=== PATIENT | male | born 1965 | race Caucasian/White ===

== ENCOUNTER 2016-09-04 23:04 | Inpatient (IN) ==
[2016-09-05] MEDS ORDERED: NS 2,000 ML IV ONE (00:13)
[2016-09-05 00:33] LABS: BASO% 0.5 % (0.0-0.8); EOS# 0.08 X1000 (0.0-0.7); EOS% 0.5 % (0.0-10.0); HEMATOCRIT 17.5 % (42.0-52.0); IMM GRAN# 0.07 X1000 (0.0-0.04); IMM GRAN% 0.4 % (0.0-0.5); LYMPH# 4.21 X1000 (1.2-3.4); LYMPH% 24.7 % (20.5-51.1); MCH 26.1 PG (27-31); MCHC 30.9 g/dL (33-37); MCV 84.5 FL (81-99); MONO# 2.83 X1000 (0.11-0.59); MONO% 16.6 % (1.7-9.3); NEUT% 57.3 % (42.2-75.2); PLT 468 X1000 (130-400); RBC 2.07 XMIL (4.7-6.1)
[2016-09-05 00:34] LABS: INR 0.96
[2016-09-05 00:38] LABS: PTT 18.5 Seconds (22.0-36.0)
[2016-09-05 00:41] LABS: MANUAL DIFF NEEDED? NO
[2016-09-05 00:42] LABS: HEMOGLOBIN 5.4 g/dL (14.0-18.0)
--- NOTE | 2016-09-05 00:50 | PROVIDER DOCUMENTATION ---
This chart was entered by Estelle Coley Scribe, acting as scribe for Kashif Wynn MD. HPI-Cardiac General - General Chief Complaint: Palpitations Stated Complaint: SOB, HEART RACING Time Seen by Provider: 09/04/16 23:29 Source: patient Allergies/Adverse Reactions: Patient Allergies Allergy/AdvReac Type Severity Reaction Status Date / Time No Known Allergies Allergy Verified 09/04/16 23:55 Home Medications: Home Medication List Medication Instructions Recorded Confirmed Last Taken Type NK [No Home Medications] 09/05/16 09/05/16 Unknown History - History of Present Illness-Cardiac Nature of Presenting Problem: 51 Y/O M presents to ED with Palpitations. Pt states that the onset began Sunday has been worsening since, states worsens with movement. C/o of dry cough, states he has a hx of GI bood. States recent occurrence of black stool has had constipation until today. Location: reports: central Quality of Pain: reports: pressure Severity in ED: moderate Onset/Duration: 3 days ago Timing: still present Context/Activities at Onset: reports: light activity Modifying Factors: improves with: movement Palpitation Quality: fast/pounding heart beat Recent use of:: reports: no stimulants Nitro Today/Relief: reports: no nitro taken today Aspirin Treatment Today: reports: no aspirin today Associated Symptoms: reports: abdominal pain. denies: fever/chills Review of Systems - Adult - REVIEW OF SYSTEMS - ADULT Constitutional: denies: chills, fever Eyes: reports: no symptoms reported Ears, Nose, Mouth & Throat: reports: no symptoms reported Cardiovascular: reports: palpitations. denies: syncope Respiratory: reports: shortness of breath. denies: cough Gastrointestinal: reports: constipation, rectal bleeding Genitourinary: reports: no symptoms reported Musculoskeletal: reports: no symptoms reported Integumentary: reports: no symptoms reported Neurological: reports: no symptoms reported Psychiatric: reports: no symptoms reported Endocrine: reports: no symptoms reported Hematologic/Lymphatic: reports: no symptoms reported Allergic/Immunologic: reports: no symptoms reported All Other Systems: Reviewed and Negative Past History - Adult - PAST MEDICAL HISTORY-ADULT Review of Records: reports: Old Records Reviewed, Nursing Assessment Review, Medications Reviewed, Social history reviewed & non-contributory. Major Childhood Illnesses: reports: denies history - PRIOR SURGERIES/PROCEDURES Surgical/Procedure History: reports: appendectomy - IMMUNIZATION STATUS Childhood Immunizations: See Nurse Assessment Flu Vaccine: See Nurse Assessment - SOCIAL HISTORY Smoking: non-smoker Alcohol Use Frequency: rarely Physical Exam-General - PHYSICAL EXAM-ADULT Initial Vital Signs Reviewed: Yes - CONSTITUTIONAL General Appearance: appears well, alert, no apparent distress - EYES Eyes: PERRL/EOMI, pink conjunctivae - HEAD, EARS, NOSE, MOUTH & THROAT HENMT: normocephalic/atraumatic, moist mucous membranes, normal ENT inspection, TMs normal, pharynx normal - NECK Neck: non-tender, full range of motion, supple, normal inspection - RESPIRATORY Respiratory: chest non-tender, lungs clear, normal breath sounds - CARDIOVASCULAR Cardiovascular: normal peripheral pulses, tachycardia - GASTROINTESTINAL (ABDOMEN) Abdominal Exam: normal bowel sounds, non tender, soft, no organomegaly, no pulsatile mass - GENITOURINARY Rectal Exam: black stool, blood streaked stool - LYMPHATIC Lymphatic: no adenopathy - MUSCULOSKELETAL Back Exam: normal inspection, no CVA tenderness, no vertebral tenderness Extremity: normal range of motion, non-tender, normal gait, normal inspection - SKIN Integumentary: normal color, normal turgor, warm/dry - NEUROLOGIC Neurologic: musical therapist II-XII nml as tested, no motor/sensory deficits - PSYCHIATRIC Psych/Mental Status: normal mood/affect, normal thought content, normal thought process, oriented x 3 Progress - PLAN OF CARE/RESULTS Progress/Plan/Lab Results: Vital Signs - 8 hr 09/04/16 23:13 09/05/16 00:05 Temperature 98.9 F 98 F Pulse Rate 109 H 113 H Respiratory Rate 14 20 Blood Pressure 119/67 O2 Sat by Pulse Oximetry 100 98 09/04/16 23:55 Stool Occult Blood (YEHUDA) - Final Stool Laboratory Results - last 24 hr 09/04/16 09/04/16 09/04/16 23:50 23:50 23:50 WBC 17.04 H RBC 2.07 L Hgb 5.4 L* Hct 17.5 L MCV 84.5 MCH 26.1 L MCHC 30.9 L RDW Std Deviation 17.6 H Plt Count 468 H MPV 10.0 Immature Gran % (Auto) 0.4 Neut % (Auto) 57.3 Lymph % (Auto) 24.7 Warrick % (Auto) 16.6 H Eos % (Auto) 0.5 Baso % (Auto) 0.5 Immature Gran # (Auto) 0.07 H Neut # (Auto) 9.77 H Lymph # (Auto) 4.21 H Warrick # (Auto) 2.83 H Eos # (Auto) 0.08 Baso # (Auto) 0.08 Segmented Neutrophils Not Reportable PT 10.0 INR 0.96 PTT (Actin FS) 18.5 L D-Dimer 0.21 Troponin T 09/04/16 23:50 WBC RBC Hgb Hct MCV MCH MCHC RDW Std Deviation Plt Count MPV Immature Gran % (Auto) Neut % (Auto) Lymph % (Auto) Warrick % (Auto) Eos % (Auto) Baso % (Auto) Immature Gran # (Auto) Neut # (Auto) Lymph # (Auto) Warrick # (Auto) Eos # (Auto) Baso # (Auto) Segmented Neutrophils PT INR PTT (Actin FS) D-Dimer Troponin T < 0.010 Orders Category Date Time Status Cardiac Monitoring DIRECTED Care 09/05/16 00:01 Active Oxygen Therapy- ED Nursing DIRECTED Care 09/05/16 00:01 Active Saline Loc NOW Care 09/05/16 00:01 Active CHEST-2 VIEWS [RAD] Stat Exams 09/05/16 00:01 Taken CBC WITH ELECTRONIC DIFF [HEME] Stat Lab 09/05/16 00:03 Completed CK PROFILE [SP CHEM] Stat Lab 09/05/16 00:03 Received COMPREHENSIVE METABOLIC PANEL [CHEM] Stat Lab 09/05/16 00:03 Received D-DIMER [CHEM] Stat Lab 09/05/16 00:03 Completed MAGNESIUM [CHEM] Stat Lab 09/05/16 00:03 Received PRO B-NATRIURETIC PEPTIDE Stat Lab 09/05/16 00:03 Received PROTIME WITH INR [COAG] Stat Lab 09/05/16 00:03 Completed PTT [COAG] Stat Lab 09/05/16 00:03 Completed Stool [OCCULT BLOOD SCREENING] [STOOL] Stat Lab 09/05/16 00:12 Completed TROPONIN T Stat Lab 09/05/16 00:03 Completed TYPE & SCREEN [BBK] Stat Lab 09/05/16 00:40 Uncollected 0.9% Sodium Chloride Inj [Ns] 2,000 ml Med 09/05/16 00:13 Active IV 999 mls/hr EKG [EKG] Stat Ther 09/04/16 23:05 Ordered Result Diagrams: 09/04/16 23:50 - REASSESSMENT Reassessment #1 Time Reassessed: 00:47 Status: improving (tachycardia is decreasing after a fluid boulus, informed would be admitted for blood transfusion and reevaluation of bleeding site) - EKG 1 Time of EKG reading by physician:: 23:11 EKG Read and Signed by:: Kashif Wynn EKG Interpretation (*Must complete 3 of following elements*): Abnormal Rate: 117 Rhythm: Sinus Tachycardia with premature atrial complexes Comments: Abnormal ECG - CONSULTS/PCP/HOSPITALIST Notification #1 *Consult/PCP/Hospitalist*: Time Discussed: 00:47 Reason/Comments: Admittance Consult Disposition: Admit (Admit Accepted) Departure - Departure Time of Disposition Decision: 00:49 DIAGNOSIS: GI bleed Qualifiers: GI bleed type/associated pathology: unspecified gastrointestinal hemorrhage type Qualified Code(s): K92.2 - Gastrointestinal hemorrhage, unspecified Disposition: ADMITTED INPATIENT 09 Certified Medical Emergency: Emergent Condition: Serious Referrals and Follow-Ups: Cesar Fritz MD [Primary Care Provider] - This chart was documented by the indicated scribe, (Estelle Coley Scribe) and accurately reflects the services I performed and decisions made by , Kashif Wynn MD, as attested by the provider's signature.
[2016-09-05 01:11] LABS: AGAP 11; ALBUMIN 3.2 g/dL (3.5-5.0); ALKALINE PHOSPHATASE 43 U/L (32-122); BUN 25 mg/dL (8-22); CHLORIDE 105 mmol/L (98-107); CK PROFILE 152 U/L (24-204); COSMO 280; GOT 18 U/L (10-34); GPT 13 U/L (10-44); SODIUM 138 mmol/L (136-145); TCO2 22 mmol/L (25-35); TOTAL BILIRUBIN 0.13 mg/dL (0.20-1.00); TOTAL PROTEIN 5.8 g/dL (6.3-8.3)
--- NOTE | 2016-09-05 03:04 | HISTORY AND PHYSICAL ---
PRIMARY CARE PHYSICIAN: No primary care physician. HISTORY: Mr. Bob Hawkins is a 58-year-old male with a past medical history of neurofibromatosis and a GI bleed of unknown etiology. Comes in today complaining of a 3-day history of generalized weakness, postural lightheadedness, palpitations with dyspnea on exertion. He says 2 days ago when he went to work, his co-worker noticed and commented that he was pale. About a few hours later, when he got home, he noticed that with just mild exertion, he developed intense palpitations and shortness of breath. Thereafter, each time he tried to get up, he felt very dizzy. He denies any chest pain, leg swelling, PND, or orthopnea. These aforementioned symptoms have been getting worse. He denies any hematochezia, hematemesis, coffee-grounds, hematuria, epistaxis, or bleeding from any orifice except this evening when he noticed an episode of dark stools with no aly bleeding. He denies any use of NSAIDs or alcohol abuse. He denies any abdominal pain, any weight loss, arthralgia, or rash. REVIEW OF SYSTEMS: Twelve system review is negative. Positive findings per HPI. ALLERGIES: None. MEDICATION: Recently completed omeprazole about a week ago. SOCIAL HISTORY: He lives alone. Does not smoke, drink, or use illicit drugs. PAST SURGICAL HISTORY: Appendectomy and about a month ago, had an upper and lower GI endoscopy. FAMILY HISTORY: Only notable for type 2 diabetes in first-degree relatives. No heart disease. Dad of a cancer, he cannot remember what type. LABORATORY WORK: White count 17,000, hemoglobin and hematocrit 5 on 17, with RDW of 17, MCV 84, platelet count is 468,000 with 16% monocytes. BUN is 25, creatinine 1. Troponin negative. PT and PTT normal. Occult blood was positive. D-dimer is negative. PHYSICAL EXAMINATION: GENERAL: Middle-aged, man who is not in acute distress. He is A and O x3. He has normal mood and affect. VITAL SIGNS: Blood pressure is 119/67, heart rate 113, temperature is 98, respirations 20. HEENT: Head is normocephalic, atraumatic. Eyes: LEONARD, EOMI. He is anicteric and mildly pale. ENT and oropharynx exam is grossly normal. No central cyanosis. NECK: Supple. No JVD or carotid bruit. No thyromegaly. LYMPHATICS: Lymph node examination is grossly normal. CHEST: Clear to auscultation with good air entry in both lung jordan. CARDIOVASCULAR: First and second heart sounds heard. No gallops, murmurs, rubs. Rhythm is regular and tachycardic. ABDOMEN: Protuberant, soft, nontender. No mass or organomegaly. Bowel sounds are hypoactive. RECTAL: Examination is deferred at this time. EXTREMITIES: No edema, clubbing, or peripheral cyanosis. Pulses distally in all extremities have good volume and are symmetrical. NEUROLOGICAL SYSTEM: No focal deficits. SKIN: Intact but with numerous diffuse fleshy soft nodular lesions which are chronic. MUSCULOSKELETAL: Examination is grossly normal. ASSESSMENT: 1. Posthemorrhagic anemia, probably from gastrointestinal bleed. 2. Gastrointestinal bleed. 3. Orthostatic hypotension secondary to #1. 4. Neurofibromatosis. PLAN: At this time, we will transfuse 2 units of packed red blood cells but prior to this, we will aggressively resuscitate patient with normal saline pending availability of blood. Empirically, we will start the patient on high dose IV PPIs. Consult Dr. Adler to see the patient later today for possible alternative imaging studies, (?) endoscopic capsule. We will do serial H and H, and transfuse per Dr. Adler's orders. Anemia workup has been ordered to document the possibility of this being a very chronic and slow bleed. The patient has monocytosis which could or could not be related to leukemic disease. This has been chronically elevated and may require intervention from hematology if the etiology of bleeding cannot be sought. cc: Deedee Cabrera MD
[2016-09-05] MEDS ORDERED: ZOFRAN IV PRN (03:22)
[2016-09-05] MEDS ORDERED: TYLENOL PO PRN (03:22)
[2016-09-05 03:34] LABS: RETIC% 6.42 % (0.8-2.1); RETIC-HE 27.1 PG (28.2-36.6)
[2016-09-05 03:48] LABS: IRON SATURATION 4 %; TIBC 342 ug/dL; TOTAL IRON 13 ug/dL (53-167); UNBOUND IRON 329 ug/dL (112-346)
[2016-09-05 03:59] LABS: HEMATOCRIT 16.1 % (42.0-52.0)
[2016-09-05] MEDS: PROTONIX IV SCH ×2 (04:07→15:44)
[2016-09-05] MEDS: NS 1,000 ML IV SCH ×4 (04:07→22:08)
[2016-09-05] MEDS: SODIUM CHLORIDE 0.9% INJ SCH ×2 (04:07→15:44)
--- NOTE | 2016-09-05 05:13 | EKG Report ---
Test Performed on : 09/04/2016 11:11:30 PM Test Reason : PALPITATIONS Blood Pressure : / mmHG Vent. Rate : 117 BPM Atrial Rate : 117 BPM P-R Int : 164 ms QRS Dur : 072 ms QT Int : 324 ms P-R-T Axes : 041 032 064 degrees QTc Int : 451 ms Sinus tachycardia. with premature atrial complexes. Nonspecific T wave abnormality Abnormal ECG When compared with ECG of 06-JUL-2016 19:41, premature atrial complexes. are now present Unconfirmed Result
--- NOTE | 2016-09-05 07:49 | Diag Imaging Result Document ---
PROCEDURE NAME: CHEST-2 VIEWS - 09/05/2016 CHEST X-RAY, 2 VIEWS: COMPARISON: 07/06/2016. FINDINGS: The lungs are normally expanded and clear. Heart size and mediastinal contours are normal. No pneumothorax or pleural effusion. IMPRESSION: Negative exam.
[2016-09-05 12:35] LABS: HEMOGLOBIN 7.4 g/dL (14.0-18.0)
--- NOTE | 2016-09-05 14:09 | CONSULTATION ---
DATE OF CONSULTATION: 09/05/2016 REASON FOR REFERRAL: Severe anemia, GI bleed. HISTORY OF PRESENT ILLNESS: This is a 51-year-old, white male, who was seen in the hospital in June for similar symptoms and EGD and colonoscopy were done at that time with no active bleeding found. An EGD on 07/07/2016 showed duodenitis, otherwise normal EGD. Colonoscopy on 07/10/2016 showed a cecal polyp. Otherwise normal colonoscopy up to the terminal ileum. The patient had been in his usual state of health when he had started complaining of generalized weakness, lightheadedness, palpitations. Several days ago at work, he was noted by his co-worker that he was pale. He had some palpitations and shortness of breath with dizziness. He came in for further evaluation and was found to be severely anemic. He had denied any visible evidence of hematemesis or coffee-ground emesis. No hematuria. No bright red bleeding from the rectum. He did notice an episode of dark stools. He states he has had some issues with constipation over the weekend. He had [place] food yesterday and that produced a bowel movement and that is when he states he noted a dark stool. He reported having to strain. No reported abdominal pain. No nausea or vomiting. PAST MEDICAL HISTORY: For neurofibromatosis since childhood. PAST SURGICAL HISTORY: Appendectomy approximately 2-3 years ago. He had an EGD and colonoscopy when he was in the hospital in June of this year. ALLERGIES: No known drug allergies. HOME MEDICATIONS: None listed. He states he took about a month of the Prilosec after his procedure in June and ran out of refills. SOCIAL HISTORY: Denies tobacco use. He reports rare alcohol use. He may have 2-3 beers a month. He works at the [employer] in [place]. REVIEW OF SYSTEMS: Per HPI. PHYSICAL EXAM: Vital Signs: Temperature 97.9, pulse 86, respirations 16, blood pressure 109/67. Generally: Patient is awake and alert. No acute distress. HEENT: Normocephalic, atraumatic. Pupils equal, round, reactive to light. Sclerae are nonicteric. Conjunctivae mildly pale. chest/Respiratory: Lung sounds clear bilaterally. Cardiovascular: Regular rate and rhythm. Abdomen: Soft, nontender. Positive bowel sounds. Extremities: No lower extremity edema noted. Pedal pulses positive bilaterally. Neurologically: Cranial nerves 2-12 grossly intact. Patient is awake, alert, oriented to person, place and time. Skin: He does have nodular lesions scattered with history of neurofibromatosis. DIAGNOSTIC RESULTS/LABORATORY: Hematology: White count 17.04, hemoglobin 5.0, hematocrit 16.1. He has received 2 units of packed red blood cells. MCV 84.5, platelets 468. Coagulation ProTime 10.0. INR 0.96. PTT 18.5. Chemistry: Sodium 138, potassium 4.0, chloride 105, CO2 of 22, BUN 25, creatinine 1.0, glucose 101, calcium 8.0, magnesium 2.0. Iron 13, TIBC 342%, saturation 4, ferritin 8. Total bilirubin 0.13. AST 18, ALT 13, alkaline phosphatase 43. ASSESSMENT AND PLAN: 1. Severe anemia. 2. Questionable gastrointestinal bleed. 3. Hypotension. 4. History of neurofibromatosis. PLAN: He has had EGD and colonoscopy in June with no evidence of active bleeding. We will proceed with an EGD with push enteroscopy first and further plans will be made according to findings. I have discussed the procedure along with the benefits and risks with the patient and he wishes to proceed. Continue to follow hemoglobin and hematocrit and transfuse further packed red blood cells as needed. He has received 2 units of packed red blood cells. We will get an hemoglobin and hematocrit and further plans will be made as needed. I have discussed this case with Dr. Adler. Thank you for this consultation. Dictated by RANDY Bradford for Thor Adler MD cc: RANDY Espinoza MD
[2016-09-05 15:39] LABS: HEMATOCRIT 23.5 % (42.0-52.0); HEMOGLOBIN 7.6 g/dL (14.0-18.0)
[2016-09-05 22:13] LABS: HEMOGLOBIN 7.3 g/dL (14.0-18.0)
[2016-09-06] MEDS: NS 1,000 ML IV SCH ×5 (03:45→21:23)
[2016-09-06] MEDS: SODIUM CHLORIDE 0.9% INJ SCH ×2 (05:06→16:48)
[2016-09-06] MEDS: PROTONIX IV SCH ×2 (05:06→16:48)
[2016-09-06 06:12] LABS: MANUAL DIFF NEEDED? NO
[2016-09-06 06:38] LABS: BASO% 0.5 % (0.0-0.8); EOS# 0.27 X1000 (0.0-0.7); EOS% 1.9 % (0.0-10.0); HEMATOCRIT 24.5 % (42.0-52.0); HEMOGLOBIN 7.8 g/dL (14.0-18.0); IMM GRAN# 0.05 X1000 (0.0-0.04); IMM GRAN% 0.3 % (0.0-0.5); LYMPH# 3.93 X1000 (1.2-3.4); LYMPH% 27.1 % (20.5-51.1); MCH 27.7 PG (27-31); MCHC 31.8 g/dL (33-37); MCV 86.9 FL (81-99); MONO# 2.79 X1000 (0.11-0.59); MONO% 19.3 % (1.7-9.3); NEUT% 50.9 % (42.2-75.2); PLT 476 X1000 (130-400); RBC 2.82 XMIL (4.7-6.1)
[2016-09-06 06:44] LABS: AGAP 11; BUN 10 mg/dL (8-22); CALCIUM 7.8 mg/dL (8.8-10.2); CHLORIDE 108 mmol/L (98-107); COSMO 278; POTASSIUM 3.7 mmol/L (3.5-5.1); SODIUM 140 mmol/L (136-145); TCO2 21 mmol/L (25-35)
--- NOTE | 2016-09-06 09:40 | PROGRESS NOTE ---
DATE: 09/06/2016 SUBJECTIVE: Mr. Hawkins says he is feeling better. I think he is scheduled to get EGD this morning. OBJECTIVE: Vital Signs: Temp 97.7 degrees, pulse 80, respirations 16, blood pressure 109/61. HEENT: CVP less than 6 cm. Lungs: Clear in all lung jordan. Cardiovascular exam: Regular rhythm and rate without murmurs. : There is good urine output over 5 L. LABS: Lab from this morning: White count 14,480, hematocrit is 24, platelet count 476,000. Sodium 140, potassium 3.7 chloride 108, bicarbonate 21, BUN 10, creatinine 0.8, calcium 7.8. ASSESSMENT AND PLAN: 1. Severe anemia, suspect gastrointestinal bleed. He had an esophagogastroduodenoscopy and colonoscopy in June with no evidence of active bleeding. We are going to proceed with an esophagogastroduodenoscopy today and push endoscopy to see if we can get down into the small bowel. His hematocrit, hemoglobin appear stable; hemoglobin 7.8, hematocrit 24. He received 2 units of blood. 2. He has a history of neurofibromatosis. Aware. 3. History of orthostatic hypotension, suspect is related to his anemia. Review of his current orders: I do not see any change. Some Protonix 40 mg IV q. 12 hours. Getting fluids, normal saline at 75 mL an hour. cc: Lam Hernandez MD
[2016-09-06] MEDS ORDERED: EPINEPHRINE SYRINGE ONE (14:44)
[2016-09-06] MEDS ORDERED: DIPRIVAN 1% ONE ×2 (15:18→15:28)
[2016-09-06] MEDS ORDERED: FENTANYL ONE (15:18)
[2016-09-06] MEDS ORDERED: XYLOCAINE-MPF 2% ONE (15:46)
[2016-09-06] MEDS ORDERED: EXTENSION SET 32 IN 4522 ONE (15:46)
[2016-09-06] MEDS ORDERED: ANESTHESIA PB SET 88 IN 5742 ONE (15:46)
[2016-09-06] MEDS ORDERED: LR 1,000 ML ONE (15:46)
--- NOTE | 2016-09-07 03:23 | OPERATIVE NOTE ---
PROCEDURE DATE: 09/06/2016 PROCEDURE PERFORMED: Push enteroscopy. MEDICATION USED: MAC as per Anesthesia. SCOPE USED: Olympus pediatric colonoscope. PREOPERATIVE DIAGNOSES: 1. Acute gastrointestinal bleed. 2. Anemia secondary to gastrointestinal bleed. POSTOPERATIVE DIAGNOSIS: Ulcerated small bowel tumor. HISTORY: This is a 51-year-old, white male. He was admitted the 2nd time to the hospital with profound anemia and history of melena. On his previous admission, he had a panendoscopy done. No clearcut evidence of pathology seen that would explain his anemia and recurrent bleeding. Push enteroscopy was scheduled for diagnostic as well as therapeutic purposes. DESCRIPTION OF PROCEDURE: Informed consent was obtained from the patient. The procedure, risks, benefits, alternatives were explained in layman's terms. He understood. All his pertinent questions were answered. The patient was brought to the endoscopy unit and was premedicated as per Anesthesia. After adequate sedation, while he was lying in the left lateral position, the scope was introduced into the posterior pharynx and advanced under direct vision into the esophagus. Esophagus in its entire length appeared to be normal. No esophagitis, webs, rings, varices were seen. No evidence of active bleeding or stigmata of recent bleed seen in the esophagus. The scope was then passed through the esophagus into the stomach. Stomach was examined both in straight and retroflexed view, which did not reveal any ulcer, tumor, or masses. No evidence of active bleeding or stigmata of recent bleed seen in the stomach. The scope was then passed through the pylorus into the duodenal bulb. There was patchy hyperemia in the duodenum but again no evidence of active bleeding. No ulcer noted. I was able to advance the scope up though the entire length of the duodenum and jejunum. Most likely, I was able to access either the distal jejunum or proximal ileum where I saw a large submucosal mass which was occupying almost 1/3 of the circumference of the bowel. It appeared about 5-6 cm in diameter, ulcerated, and firm, most likely the source of his bleeding. There was no active bleeding noted. I used cold biopsy forceps and took multiple biopsies of the mass. Then I used a sclerotherapy needle and injected Spot in and around the mass to fabby the area for future surgical intervention. The scope was then withdrawn. No further lesions seen in the proximal jejunum or the rest of the duodenum. Patient tolerated the procedure. No complications noted. Patient was then transferred to the recovery area in a stable condition. 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 RECOMMENDATION: Follow up the biopsy report. Recheck hemoglobin and hematocrit, and transfuse if necessary. In the meantime, we will consult surgery. Dr. uBrns was kind enough to come and review the findings with me in the endoscopy lab. We will consult him formally for surgical intervention. I have explained the finding and plan to the patient's sister, answered all her pertinent questions. cc: Thor Adler MD
[2016-09-07] MEDS: PROTONIX IV SCH ×2 (04:10→15:07)
[2016-09-07] MEDS: SODIUM CHLORIDE 0.9% INJ SCH ×2 (04:10→15:06)
[2016-09-07] MEDS: NS 1,000 ML IV SCH ×3 (07:08→17:10)
--- NOTE | 2016-09-07 13:41 | PROGRESS NOTE ---
DATE: 09/07/2016 Mr. Hawkins is comfortable, in no distress at this time.Vital signs: Temperature 98.8 degrees, pulse 85, respirations 20, blood pressure 111/55. HEENT: Pupils are equal. CVP less than 6 cm. Lungs: Clear in all lung jordan. Cardiovascular: Regular rhythm and rate without murmur. Good urine output. 2400 mL output. LAB: Reviewed from yesterday. White count [id number], hematocrit stable at 24, platelet count 476,000. Dr. Adler did an EGD yesterday. Ulcerative mass in the small bowel biopsied and tattooed. PLAN: Is I think for surgery tomorrow. Continue to follow hemoglobin and hematocrit. REVIEW OF CURRENT ORDERS: I do not see any change. Dr. Burns has been consulted. cc: Lam Hernandez MD
--- NOTE | 2016-09-07 21:15 | CONSULTATION ---
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 HISTORY: This is a 50-year-old gentleman with neurofibromatosis who has had GI bleeding of unknown source. He has had previous upper GI and lower GI endoscopy without the source of bleeding identified. He had a push endoscopy by Dr. Adler finding a tumor in his jejunum consistent with a neurofibroma or leiomyoma. Biopsies were taken. I have been consulted to see him regarding possible removal of this tumor. PAST SURGICAL HISTORY: Appendectomy. MEDICATIONS AT HOME: Omeprazole. ALLERGIES: He has no known drug allergies. SOCIAL HISTORY: He does not smoke or drink alcohol. He lives alone. I think he is employed. FAMILY HISTORY: Pertinent for type 2 diabetes. REVIEW OF SYSTEMS: Negative except for the lightheadedness, weakness and occasional palpitations associated with blood loss. He denies any abdominal pain. PHYSICAL EXAMINATION: Vital Signs: He is afebrile. Heart rate 92, respiratory rate 16, blood pressure 121/68. General: He has scattered neurofibromas noted. He has no cervical adenopathy. Lungs: Bilateral breath sounds. Heart: Regular rate and rhythm. Abdomen: Soft and nontender. Extremities: Femoral pulses are present. No peripheral edema. He is awake and alert. DIAGNOSTICS/LABS: White count is 14,000. Hemoglobin 7.8, hematocrit 24, BUN 10, creatinine 0.8. 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 We will plan a laparoscopy with removal of the tumor. I discussed this with him including the benefits and risks. He understands and wishes to proceed. We hope to proceed on the . cc: Cesar Burns MD
[2016-09-08] MEDS: NS 1,000 ML IV SCH ×3 (00:35→06:09)
[2016-09-08] MEDS: SODIUM CHLORIDE 0.9% INJ SCH ×2 (03:20→20:13)
[2016-09-08] MEDS: PROTONIX IV SCH ×2 (03:20→20:12)
[2016-09-08 06:32] LABS: BASO% 0.5 % (0.0-0.8); EOS# 0.51 X1000 (0.0-0.7); EOS% 3.8 % (0.0-10.0); HEMATOCRIT 23.5 % (42.0-52.0); HEMOGLOBIN 7.6 g/dL (14.0-18.0); IMM GRAN# 0.04 X1000 (0.0-0.04); IMM GRAN% 0.3 % (0.0-0.5); LYMPH% 25.4 % (20.5-51.1); MANUAL DIFF NEEDED? YES; MCH 27.7 PG (27-31); MCHC 32.3 g/dL (33-37); MCV 85.8 FL (81-99); MONO% 21.6 % (1.7-9.3); MPV 9.9 FL (7.4-10.4); NEUT% 48.4 % (42.2-75.2); PLT 582 X1000 (130-400); RBC 2.74 XMIL (4.7-6.1)
[2016-09-08 06:41] LABS: AGAP 12; BUN 9 mg/dL (8-22); CHLORIDE 107 mmol/L (98-107); COSMO 282; POTASSIUM 3.8 mmol/L (3.5-5.1); SODIUM 142 mmol/L (136-145); TCO2 23 mmol/L (25-35)
[2016-09-08 07:32] LABS: BANDS 2 % (0-1); EOS 2 % (1-10); HYPOCHROM 1+; LYMPHS 18 % (21-51); MONO 14 % (1-9)
[2016-09-08] MEDS ORDERED: SODIUM CHLORIDE 0.9% ONE (07:51)
[2016-09-08] MEDS ORDERED: MARCAINE 0.25% PF ONE (07:51)
[2016-09-08] MEDS ORDERED: EXPAREL 1.3% ONE (07:52)
[2016-09-08] MEDS ORDERED: SODIUM CHLORIDE 0.9% 10 ML ONE (07:53)
[2016-09-08] MEDS ORDERED: KEFZOL 1 GM/D5W 1 GM/50 ML IVPB ONE (07:57)
[2016-09-08] MEDS ORDERED: CLAVE SECONDARY SET 11953 ONE (07:57)
[2016-09-08] MEDS ORDERED: MARCAINE 0.25% PF/EPI 1:200,000 ONE (08:52)
[2016-09-08] MEDS ORDERED: LR 1,000 ML ONE (08:52)
[2016-09-08 10:00] LABS: URINE MICRO REVIEW NEEDED? NO; URINE SOURCE CATH
[2016-09-08 10:04] LABS: BILIRUBIN URINE NEGATIVE (NEGATIVE); BLOOD URINE NEGATIVE (NEGATIVE); COLOR STRAW; GLUCOSE URINE NEGATIVE (NEGATIVE); LEUKOCYTES URINE NEGATIVE (NEGATIVE); NITRITE URINE NEGATIVE (NEGATIVE); PROTEIN URINE NEGATIVE (NEGATIVE); SP GRAVITY URINE 1.006; TURBIDITY URINE CLEAR (CLEAR); UROBILINOGEN URINE NORMAL (NORMAL)
[2016-09-08 10:05] LABS: UR EPITHELIAL CELLS <10 /HPF (<10); URINE BACTERIA NEGATIVE /HPF; URINE RBC <10 /HPF (<10); URINE WBC <10 /HPF (<10)
[2016-09-08] MEDS ORDERED: MORPHINE IV PRN (10:47)
[2016-09-08] MEDS ORDERED: NS 1,000 ML IV SCH (10:48)
[2016-09-08] MEDS ORDERED: ZOFRAN ONE (11:29)
[2016-09-08] MEDS ORDERED: NEOSTIGMINE ONE (11:29)
[2016-09-08] MEDS ORDERED: XYLOCAINE-MPF 2% ONE (11:30)
[2016-09-08] MEDS ORDERED: ANESTHESIA PB SET 88 IN 5742 ONE (11:30)
[2016-09-08] MEDS ORDERED: ROBINUL ONE (11:30)
[2016-09-08] MEDS ORDERED: DECADRON ONE (11:30)
[2016-09-08] MEDS ORDERED: NORCURON ONE (11:30)
[2016-09-08] MEDS ORDERED: QUELICIN (DOSE) ONE (11:30)
[2016-09-08] MEDS ORDERED: LR 3,000 ML ONE (11:30)
--- NOTE | 2016-09-08 11:34 | OPERATIVE NOTE ---
PROCEDURE DATE: 09/08/2016 DATE OF SURGERY: 09/08/2016. PROCEDURE PERFORMED: Laparoscopic resection of jejunal tumor; lysis of adhesions. SURGEON: Cesar Burns MD. PUMP MACHINE OPERATOR: Dr. Patterson, who was helpful in exposure and the resection and the anastomosis. DESCRIPTION OF PROCEDURE: Satisfactory general endotracheal anesthesia was achieved. The abdomen was prepped and draped in a sterile fashion. We used a 5 mm laparoscope Optiview technique in the left upper quadrant and into the abdominal cavity under direct visualization. We insufflated through this trocar. Under direct visualization, we used a 5 trocar in the left lower quadrant and one in the mid hypogastrium. Multiple adhesions were noted up against the anterior abdominal wall consistent with his previous laparotomy. We used scissors to laparoscopically incise adhesions away from the anterior abdominal wall until we had free open space in the epigastrium. There were also adhesions in the right upper quadrant where his previous cholecystectomy had been. We then used padded graspers. We identified the ligament of Treitz and began running the bowel. In the proximal jejunum we identified the tattooed area with a large jejunal wall mass. This obviously was the site of the tumor that had previously been identified by Dr. Adler. We then chose a spot in the midline and anesthetized the skin with 0.25 Marcaine with epinephrine for 5 cm. We incised the skin and carried our incision down to the fascia and opened the fascia for 5 cm. Where we had the bowel grasped with a padded grasper, we delivered it to the abdominal wall and then used a Broussard to deliver the portion the jejunum out of the abdominal cavity. The tumor was almost to big to come through the abdominal wall, but it was able to come through the 5 cm incision. 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 This was partially intraluminal upon palpation. We then cleaned off the mesentery proximally and distally. We used a GUSTAVO 60 blue cartridge to staple the bowel proximal to the lesion and distal to the lesion. We left the bowel [id number]. We divided the mesentery using Hemostats and the electrocautery. We suture ligated the mesenteric vessels with 3-0 silk suture ligatures. After handing off the portion of the jejunum with the tumor, we then again laid the bowel side by side and used a 3-0 silk to oppose the sides together. We then cut off the corners and used a GUSTAVO 60 linear stapler to do a [id number] stapled anastomosis. The open end was then approximated with Allis' and used a TA-45 blue cartridge to staple the open ends of the bowel. We inverted the staple line with 3-0 silks in a Lembert fashion. This thereby completed the noxe-fq-cybr stapled anastomosis. We then replaced the bowel back into the abdominal cavity. We closed the fascia with 2-0 Polysorb [id number] stitches. We irrigated out the wound. We re-insufflated and the bowel was resting satisfactory. There was no bleeding. No further intervention was indicated at this time. We then desufflated, removed our trocars. We closed the skin at each trocar site with 4-0 Polysorb subcuticular stitches, and the 5 cm incision in the midline was closed with 4-0 Polysorb subcuticular stitch. Sterile OpSite were applied. He tolerated it well and was sent to the recovery room in satisfactory condition. cc: MD Thor Duncan MD
[2016-09-08] MEDS ORDERED: DIPRIVAN 1% ONE (12:16)
--- NOTE | 2016-09-08 15:40 | PROGRESS NOTE ---
DATE: 09/08/2016 SUBJECTIVE: Patient underwent surgery today per Dr. Cesar Burns. Laparoscopic resection of jejunal tumor, lysis of adhesions, and he did resection with reanastomosis. Patient had a fairly good night. I had seen him right before surgery. OBJECTIVE: Vital Signs: Temp 99.1 degrees, pulse 78, respirations 34, blood pressure 125/72. HEENT: CVP less than 6 cm. Lungs: Clear in all lung jordan. Cardiovascular exam: Regular rhythm and rate without murmur or S3. : Good urine output over 4 L. LAB: White count 13,400, hematocrit 23, platelet count 582,000. Chemistry: Sodium 142, potassium 3.8, chloride 107, bicarbonate 23, BUN 9, creatinine 0.8. Blood sugars have been good at 101, 84 and 93. ASSESSMENT AND PLAN: Severe anemia, recurrent anemia requiring transfusion. Found Dr. Adler was unable to do an esophagogastroduodenoscopy. 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 Burns. Hemodynamics looked good. We will continue Protonix 40 mg intravenous every 12 hours. Continue present fluids. I think I might have him on normal saline running at 85 mL an hour tonight. cc: Lam Hernandez MD
[2016-09-08] MEDS: PERIDEX MT SCH (20:12)
[2016-09-09] MEDS: NS 1,000 ML IV SCH ×3 (04:17→19:05)
[2016-09-09 06:10] LABS: BASO% 0.2 % (0.0-0.8); EOS# 0.06 X1000 (0.0-0.7); EOS% 0.3 % (0.0-10.0); HEMATOCRIT 23.6 % (42.0-52.0); HEMOGLOBIN 7.6 g/dL (14.0-18.0); IMM GRAN# 0.06 X1000 (0.0-0.04); IMM GRAN% 0.3 % (0.0-0.5); LYMPH# 3.02 X1000 (1.2-3.4); LYMPH% 15.4 % (20.5-51.1); MANUAL DIFF NEEDED? NO; MCH 27.3 PG (27-31); MCHC 32.2 g/dL (33-37); MCV 84.9 FL (81-99); MONO# 3.74 X1000 (0.11-0.59); NEUT% 64.8 % (42.2-75.2); PLT 622 X1000 (130-400); RBC 2.78 XMIL (4.7-6.1)
[2016-09-09 06:24] LABS: AGAP 14; ALKALINE PHOSPHATASE 46 U/L (32-122); BUN 9 mg/dL (8-22); CALCIUM 8.2 mg/dL (8.8-10.2); CHLORIDE 103 mmol/L (98-107); COSMO 278; GOT 12 U/L (10-34); GPT 8 U/L (10-44); MAGNESIUM 1.9 mg/dL (1.5-2.7); POTASSIUM 3.9 mmol/L (3.5-5.1); SODIUM 140 mmol/L (136-145); TCO2 23 mmol/L (25-35); TOTAL BILIRUBIN 0.41 mg/dL (0.20-1.00); TOTAL PROTEIN 6.3 g/dL (6.3-8.3)
[2016-09-09] MEDS: PROTONIX IV SCH ×2 (09:36→21:33)
[2016-09-09] MEDS: PERIDEX MT SCH ×2 (09:37→21:33)
[2016-09-09] MEDS: SODIUM CHLORIDE 0.9% INJ SCH (09:37)
--- NOTE | 2016-09-09 09:37 | PROGRESS NOTE ---
DATE: 09/09/2016 SUBJECTIVE: Mr. Hawkins is a 51-year-old white male patient of Dr. Burns. He underwent a laparoscopic assisted small bowel resection yesterday for a small bowel tumor which was causing bleeding. His hematocrit this morning is stable at 24%. OBJECTIVE: He is awake and cooperative. His heart rate is 86, blood pressure 101/45, O2 saturation 95%. He is voiding without difficulty. He is on no antibiotics and is afebrile. His electrolytes are within normal limits. PLAN: We will increase his activity and start him on liquids carefully. All his wounds are healing well. His abdomen is mostly soft. cc: Rachel Rios MD
--- NOTE | 2016-09-09 10:53 | PROGRESS NOTE ---
DATE: 09/09/2016 SUBJECTIVE: Mr. Hawkins feels good and comfortable, had surgery yesterday. Incision looks good. No bowel activity at the present time. Not passing any gas by his report. OBJECTIVE: Vital signs: Temperature 98.1 degrees, pulse 86, respirations 18, blood pressure 101/45. HEENT: CVP less than 6 cm. Lungs: Clear in all lung jordan. Cardiovascular exam: Regular rhythm and rate without murmur or S3. Abdomen: Soft. Skin: Warm and dry. : Urine output well at about 6 L, so excellent urine output. LABS: White count elevated at 19,640, hematocrit 23, platelet count 622,000. Sodium 140, potassium 3.9, chloride 103, BUN 9, creatinine 0.9, calcium 7.8 and 8.0 and 8.2 today. ASSESSMENT AND PLAN: 1. Laparoscopic-assisted small bowel resection for small bowel tumor, which is causing bleeding. Hematocrit and hemoglobin appears stable. Will continue to follow. 2. Neurofibromatosis. Review of his orders: I do not see any change at this point. Of note, his white count is a little elevated today. I do not see any sign of active infection. Continue normal saline at 85 mL an hour. cc: Lam Hernandez MD
[2016-09-10] MEDS: NS 1,000 ML IV SCH ×2 (04:15→18:40)
--- NOTE | 2016-09-10 09:49 | PROGRESS NOTE ---
DATE: 09/10/2016 Mr. Bob Hawkins underwent a small-bowel resection on 09/08/[address] Burns. He is now postoperative day 2. He is on clear liquids. His abdomen remains soft were. We are unsure of bowel activity at this time. His Allison is out. He has been up ambulating to the bathroom. He does have telemetry in place. Heart rate is 83, blood pressure 113/64, O2 saturation 94% on 2 L nasal cannula O2. He is voiding without difficulty. His hematocrit is 24%. His incisions were dressed and intact. He is afebrile, on no antibiotics. PLAN: We will continue clear liquids. Increase his activity and slowly advance his diet as his bowels return function. cc: Rachel Rios MD
[2016-09-10] MEDS: PROTONIX IV SCH ×2 (10:00→20:33)
[2016-09-10] MEDS: PERIDEX MT SCH ×2 (10:00→20:33)
--- NOTE | 2016-09-10 14:40 | PROGRESS NOTE ---
DATE: 09/10/2016 SUBJECTIVE: Mr. Hawkins is comfortable. He stated he is passing some gas, passing flatus. No bowel movement. Breathing comfortably. OBJECTIVE: Vital signs: Afebrile, temperature 98.9 degrees, pulse 84, respirations 18, blood pressure 113/64. Lungs: Are clear in all lung jordan. Cardiovascular: Regular rhythm and rate without murmur or S3. Abdomen: Soft. Skin: Warm and dry. Urine output over 3 L. LABORATORY: From yesterday, hematocrit stable at 23, hemoglobin 7.6, platelet count 622,000. Sodium 140, potassium 3.9, chloride 103, bicarb 23, BUN 9, creatinine 0.9. Blood sugars have remained within normal limits. ASSESSMENT AND PLAN: 1. Underwent small bowel resection in 09/08/[address] Burns, postoperative day 2. His abdomen remains very soft and his bowel activities have started to resume. Continue present fluids and management. Hematocrit is stable. 2. Neurofibromatosis. Aware. Possibility he could be discharge tomorrow depending on how he does. Continue normal saline at 85 mL an hour, Protonix 40 mg IV q.12 hours. cc: Lam Hernandez MD
[2016-09-10] MEDS: SODIUM CHLORIDE 0.9% INJ SCH (20:33)
[2016-09-11] MEDS: NS 1,000 ML IV SCH ×2 (06:48)
[2016-09-11] MEDS: PERIDEX MT SCH ×2 (09:11→21:57)
[2016-09-11] MEDS: PROTONIX IV SCH ×2 (09:11→21:58)
[2016-09-11] MEDS: SODIUM CHLORIDE 0.9% INJ SCH ×2 (09:11→21:58)
[2016-09-11] MEDS ORDERED: NS 1,000 ML IV SCH (12:03)
--- NOTE | 2016-09-11 15:14 | PROGRESS NOTE ---
DATE: 09/11/2016 SUBJECTIVE: Mr. Hawkins feels good, he is not passing much gas. He has not had a bowel movement, no abdominal pain. He is very anxious to go home.Vital signs: Temperature 98.6 degrees, pulse 80, respirations 16, blood pressure 110/92. HEENT: Pupils are equal, round. Lungs: Are clear in all lung jordan. Cardiovascular: Regular rhythm and rate without murmur or S3. Urine output was greater than 4 L. LAB: Reviewed from . No sign of active bleeding. ASSESSMENT AND PLAN: 1. He is on clear liquids, he is passing some flatus. Advance his diet. Told him I would like him having bowel movements and eating before he goes home so will continue present regimen. 2. Neurofibromatosis aware. cc: Lam Hernandez MD
[2016-09-12] MEDS: PERIDEX MT SCH (08:11)
[2016-09-12] MEDS: PROTONIX IV SCH (08:11)
[2016-09-12 13:56] VITALS: BP 120/73
--- NOTE | 2016-09-13 10:51 | DISCHARGE SUMMARY ---
ADMISSION DATE: 09/04/2016 DISCHARGE DATE: 09/12/2016 CONSULTATIONS: 1. Thor Adler MD with Gastroenterology 2. Cesar Sanabria MD with General Surgery. PERTINENT PROCEDURES: 1. Push enteroscopy performed by Dr. Thor Adler. Revealed acute gastrointestinal bleed and anemia secondary to gastrointestinal bleed. 2. Laparoscopic resection of jejunal tumor and lysis of adhesions by Dr. Cesar sanabria. DISCHARGE DIAGNOSES: 1. Jejunal tumor, status post laparoscopic resection of jejunal tumor, as well as lysis of adhesions. The patient is passing flatulence. He is tolerating his mechanical soft diet. 2. Neurofibromatosis. 3. Acute gastrointestinal bleed with acute blood loss anemia that showed ulcerated small bowel tumor, as well as a transfusion with packed red blood cells. HOSPITAL COURSE: Mr. Hawkins is a 58-year-old male with a past medical history of neurofibromatosis, with a GI bleed of unknown etiology. He came to the emergency department complaining of 3 days history of generalized weakness, postural lightheadedness, palpitations with dyspnea on exertion. Two days prior to admission, when he went to work, his coworkers noticed and commented that he was pale. A few hours later when he got home, he noticed with just mild exertion, he developed intense palpitations and shortness of breath. Thereafter each time they tried to get up he was very dizzy. There was no chest pain. Patient denied any hematemesis, coffee ground emesis, hematuria, or any bleeding from any orifice, except on the evening of his admission he noticed a dark stool with no aly blood. Denied any NSAIDs or alcohol abuse. The patient was admitted for post hemorrhagic anemia secondary to gastrointestinal bleed. He was transfused with 2 units. On the day of admission, he was aggressively rehydrated. He was started on high doses of IV PPI, with a consult for GI, serial hemoglobin and hematocrit, along with an anemia work-up. The patient underwent an esophagogastroduodenoscopy by Dr. Thor Adler. He had an ulcerated mass in the small bowel. It was biopsied and tattooed. Dr. Sanabria, with General Surgery, was consulted. Patient underwent a laparoscopic resection of jejunal tumor and lysis of adhesions. His hemoglobin and hematocrit has remained stable. Patient is passing flatulence and he is tolerating his mechanical soft diet. Dr. Carmona has assessed the patient and felt that he was appropriate for discharge home today. DISCHARGE DIET: Mechanical soft. DISCHARGE MEDICATIONS: Will be per Dr. Carmona. FOLLOWUP: Patient will need to follow up with his primary care physician in 7-10 days, as well as Dr. Thor Adler and Dr. Cesar Sanabria. The patient can return to the emergency department for any worsening of symptoms. DISCHARGE TIME: Was 30 minutes. Dictated by RANDY Minaya for Jamie Carmona MD cc: Jamie Carmona MD
== END 2016-09-12 16:56 | disposition home or self-care (01) ==
LOC: ED 23:04 → SUATTDRO 23:05 → SUPCPDRO 23:05 → 4N 23:05
PROVIDERS: ATTEND Internal Medicine